=== PATIENT | male | born 1960 | race Caucasian/White ===

== ENCOUNTER 2023-03-12 16:36 | Outpatient (CLI) | payer BC ==
--- NOTE | 2023-03-12 20:40 | XRAY Report ---
PROCEDURE: Chest 2 View X-Ray INDICATIONS: COUGH TECHNIQUE: 2 views of the chest were acquired. COMPARISON: None. FINDINGS: Surgical changes and devices: None. Lungs and pleura: No pleural effusions or pneumothorax. Lungs are clear. Mediastinum: Mediastinal contours appear normal. Heart size is normal. Bones and chest wall: No suspicious bony lesions. Overlying soft tissues appear unremarkable. IMPRESSION: No acute cardiopulmonary process. Reviewed by: Carolina Bautista MD on 03/12/2023 8:38 PM PDT Approved by: Carolina Bautista MD on 03/12/2023 8:38 PM PDT Station ID: [id number]
== END 2023-03-12 16:37 | disposition home or self-care (01) ==
LOC: DI 16:36
PROVIDERS: ATTEND Physician Assistant
DX: R05.9 Cough, unspecified (principal); R06.02 Shortness of breath

== ENCOUNTER 2023-03-23 13:09 | Outpatient (CLI) | payer BC ==
[2023-03-23] MEDS ORDERED: ALBUTEROL 1 PUFF INH STA (14:40)
== END 2023-03-23 13:10 | disposition home or self-care (01) ==
LOC: RT 13:09
PROVIDERS: ATTEND Physician Assistant
DX: R05.9 Cough, unspecified (principal); R06.02 Shortness of breath; F17.200 Nicotine dependence, unspecified, uncomplicated
CPT/HCPCS: 94060; 94727; 94729

== ENCOUNTER 2023-05-27 14:52 | Outpatient (CLI) | payer BC | END 2023-05-27 14:53 | disposition home or self-care (01) | LOC: DI 14:52 | PROVIDERS: ATTEND Physician Assistant | DX: I35.0 Nonrheumatic aortic (valve) stenosis (principal); R06.02 Shortness of breath; R01.1 Cardiac murmur, unspecified | CPT/HCPCS: 93306 ==